=== PATIENT | male | born 1985 | race Caucasian/White ===

== ENCOUNTER 2022-02-14 19:27 | Emergency (ER) | payer SELFPAY ==
[~2022-02-14 19:27] MED LIST: SULF1TAB35 PO; TRM50T PO
[2022-02-14] MEDS ORDERED: metroNIDAZOLE 500 MG (FLAGYL) TAB PO STA (19:36)
[2022-02-14] MEDS ORDERED: ceFAZolin INJECTION 1,000 MG in NS (IVPB) 50 ML IV STA (19:36)
[2022-02-14] MEDS ORDERED: NS (IVPB) 50 ML ONE (19:37)
[2022-02-14] MEDS ORDERED: TRANEXAMIC ACID 100 MG/ML 10 ML INJECTION ONE (19:37)
[2022-02-14] MEDS ORDERED: metroNIDAZOLE 500MG/100ML IVPB 100 ML IV ONE (19:45)
[2022-02-14] MEDS ORDERED: TETANUS,DIPTH,PERTUSS P/F (BOOSTRIX) 0.5 ML VIAL IM ONE (19:45)
[2022-02-14] MEDS ORDERED: IOHEXOL 350 MG/ML 100 ML (OMNIPAQUE 350) VIAL IV ONE (19:45)
[2022-02-14] MEDS ORDERED: TRANEXAMIC ACID INJECTION 1,000 MG in NS (IVPB) 50 ML IV ONE (19:45)
[2022-02-14] MEDS ORDERED: NS 100 ML (IVPB) BAG IV ONE (19:45)
[2022-02-14 19:50] LABS: HEMATOCRIT 40 % (40-54); HEMOGLOBIN 13.8 g/dL (13.3-17.7); MEAN CORPUSCULAR HEMOGLOBIN 30 pg (25-34); MEAN CORPUSCULAR HGB CONC 34 g/dL (32-36); MEAN CORPUSCULAR VOLUME 87 fL (80-99); MEAN PLATELET VOLUME 10.3 fL (9.0-12.2); PLATELET COUNT 251 10^3/uL (130-400); WHITE BLOOD COUNT 8.7 10^3/uL (4.3-11.0)
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
[2022-02-14 20:05] LABS: ALBUMIN 3.8 GM/DL (3.2-4.5); POTASSIUM 3.6 MMOL/L (3.6-5.0)
[2022-02-14 20:06] LABS: CALCIUM 8.3 MG/DL (8.5-10.1)
[2022-02-14 20:08] LABS: TOTAL PROTEIN 6.1 GM/DL (6.4-8.2)
[2022-02-14 20:09] LABS: BILIRUBIN,TOTAL 0.4 MG/DL (0.1-1.0)
[2022-02-14 20:11] LABS: CREATININE SERUM 0.92 MG/DL (0.60-1.30); PHOSPHORUS 2.9 MG/DL (2.3-4.7)
[2022-02-14 20:13] LABS: BILIRUBIN,DIRECT 0.2 MG/DL (0.0-0.3); BILIRUBIN,INDIRECT 0.2 MG/DL
[2022-02-14 20:17] LABS: FIBRIN DEGRADATION PRODUCTS 1.24 UG/ML (0.00-0.49); PROTHROMBIN TIME PATIENT 13.9 SEC (12.2-14.7)
[2022-02-14] MEDS ORDERED: fentaNYL INJ 100 MCG/2 ML AMP IVP STA (20:18)
[2022-02-14] MEDS ORDERED: LIDOCAINE UROJET 2% GEL 10 ML PKG TOP ONE (20:30)
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
[2022-02-14 21:30] VITALS: BP 99/65
[2022-02-14] MEDS ORDERED: NS IV 1000 ML 1,000 ML ONE (21:31)
[2022-02-14] MEDS ORDERED: NS IV 1000 ML 1,000 ML IV SCH (21:45)
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
== END 2022-02-14 21:30 | disposition short-term general hospital (02) ==
LOC: EDUNIT# 19:27 → ER 19:33
DX: S31.139A Puncture wound of abdominal wall without foreign body, unspecified quadrant without penetration into peritoneal cavity, initial encounter (principal); S11.93XA Puncture wound without foreign body of unspecified part of neck, initial encounter; S01.83XA Puncture wound without foreign body of other part of head, initial encounter; F10.129 Alcohol abuse with intoxication, unspecified; Z23 Encounter for immunization; Z20.822 Contact with and (suspected) exposure to COVID-19; W34.00XA Accidental discharge from unspecified firearms or gun, initial encounter
CPT/HCPCS: 70496; 70498; 71045; 71260; 72170; 74177; 80048; 80076; 82550; 83735; 84100; 85027; 85379; 85384; 85610; 85730; 86850; 86900; 86901; 86920; 87636; 99285; G0480; 36415; 80320

== ENCOUNTER 2022-06-14 02:10 | Emergency (ER) | payer SELFPAY ==
[2022-06-14] MEDS ORDERED: KETOROLAC 30 MG/ML VIAL IVP ONE (02:45)
[2022-06-14] MEDS ORDERED: diphenhydrAMINE 50 MG/ML INJ (BENADRYL) IVP ONE (02:45)
[2022-06-14] MEDS ORDERED: LACTATED RINGERS 1,000 ML IV ONE ×3 (02:45→03:45)
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
[2022-06-14 03:09] LABS: BASOPHILS % (AUTO) 0 % (0-10); EOSINOPHILS # (AUTO) 0.4 10^3/uL (0.0-0.3); EOSINOPHILS % (AUTO) 5 % (0-10); HEMATOCRIT 46 % (40-54); HEMOGLOBIN 15.9 g/dL (13.3-17.7); LYMPHOCYTES # (AUTO) 1.5 10^3/uL (1.0-4.0); LYMPHOCYTES % (AUTO) 16 % (12-44); MEAN CORPUSCULAR HEMOGLOBIN 29 pg (25-34); MEAN CORPUSCULAR HGB CONC 34 g/dL (32-36); MEAN CORPUSCULAR VOLUME 85 fL (80-99); MEAN PLATELET VOLUME 10.5 fL (9.0-12.2); MONOCYTES # (AUTO) 0.5 10^3/uL (0.0-1.0); MONOCYTES % (AUTO) 5 % (0-12); NEUTROPHILS # (AUTO) 6.9 10^3/uL (1.8-7.8); NEUTROPHILS % (AUTO) 74 % (42-75); PLATELET COUNT 245 10^3/uL (130-400); WHITE BLOOD COUNT 9.4 10^3/uL (4.3-11.0)
[2022-06-14 03:16] LABS: CHLORIDE 107 MMOL/L (98-107); POTASSIUM 3.8 MMOL/L (3.6-5.0); SODIUM 137 MMOL/L (135-145)
[2022-06-14 03:18] LABS: AMYLASE 30 U/L (25-125)
[2022-06-14 03:19] LABS: GLUCOSE 124 MG/DL (70-105)
[2022-06-14 03:20] LABS: CARBON DIOXIDE 20 MMOL/L (21-32); TOTAL PROTEIN 6.8 GM/DL (6.4-8.2)
[2022-06-14 03:21] LABS: BILIRUBIN,TOTAL 0.8 MG/DL (0.1-1.0)
[2022-06-14 03:23] LABS: ALKALINE PHOSPHATASE 81 U/L (40-136); GFR ESTIMATED 90
[2022-06-14 03:24] LABS: BUN/CREATININE RATIO 23
[2022-06-14 03:26] LABS: ALANINE AMINOTRANSFERASE 27 U/L (0-55); LIPASE 18 U/L (8-78)
[2022-06-14 03:36] LABS: ERYTHROCYTE SEDIMENTATION RATE 1 MM/HR (0-15)
[2022-06-14 03:38] LABS: ACETAMINOPHEN < 10 UG/ML (10-30)
[2022-06-14] MEDS ORDERED: HOLD METFORMIN - RECEIVED CONTRAST 20 ML VIAL IV SCH (04:00)
[2022-06-14] MEDS ORDERED: IOHEXOL 350 MG/ML 100 ML (OMNIPAQUE 350) VIAL IV ONE (04:00)
[2022-06-14] MEDS ORDERED: NS 100 ML (IVPB) BAG IV ONE (04:00)
[2022-06-14] MEDS ORDERED: CIPR500T5 PO (05:44)
[2022-06-14] MEDS ORDERED: TMSL.4C PO (05:44)
[2022-06-14] MEDS ORDERED: ONDA8TAB13 PO (05:44)
[2022-06-14] MEDS ORDERED: KETO10TA PO (05:44)
[2022-06-14] MEDS ORDERED: ACHD5005 PO ×2 (05:44→08:26)
[2022-06-14 06:14] LABS: BILIRUBIN,URINE NEGATIVE (NEGATIVE); CLARITY,URINE SL CLOUDY; COLOR,URINE YELLOW; GLUCOSE, URINE (UA) NEGATIVE (NEGATIVE); KETONES,URINE NEGATIVE (NEGATIVE); LEUKOCYTE ESTERASE ,URINE NEGATIVE (NEGATIVE); NITRITE,URINE NEGATIVE (NEGATIVE); PH,URINE 5.5 (5-9); PROTEIN,URINE NEGATIVE (NEGATIVE)
[2022-06-14] MEDS ORDERED: CIPROFLOXACIN 500 MG (CIPRO) TABLET PO SCH (06:15)
[2022-06-14] MEDS ORDERED: TAMSULOSIN 0.4 MG (FLOMAX) CAP PO SCH (06:15)
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
[2022-06-14 06:24] LABS: BACTERIA,URINE NEGATIVE /HPF
[2022-06-14 06:25] VITALS: BP 125/78
[2022-06-14 06:27] LABS: AMPHETAMINE SCREEN, URINE POSITIVE (NEGATIVE); BENZODIAZEPINES SCREEN URINE NEGATIVE (NEGATIVE); COCAINE SCREEN URINE NEGATIVE (NEGATIVE)
[2022-06-14 06:28] LABS: BARBITURATE SCREEN URINE NEGATIVE (NEGATIVE); CANNABINOID SCREEN, URINE NEGATIVE (NEGATIVE); METHADONE STAT NEGATIVE (NEGATIVE); OPIATE SCREEN URINE NEGATIVE (NEGATIVE); OXYCODONE STAT NEGATIVE (NEGATIVE); PROPOXYPHENE STAT NEGATIVE (NEGATIVE); TRICYCLIC ANTIDEPRESSANTS SCRE NEGATIVE (NEGATIVE)
== END 2022-06-14 06:31 | disposition home or self-care (01) ==
LOC: EDUNIT# 02:10 → ER 02:13
DX: N13.2 Hydronephrosis with renal and ureteral calculous obstruction (principal); F15.90 Other stimulant use, unspecified, uncomplicated; F17.210 Nicotine dependence, cigarettes, uncomplicated
CPT/HCPCS: 74177; 80053; 80306; 81000; 82150; 83690; 85025; 85652; 86141; 93041; 99284; G0480 ×2; 36415; 80320; 80329